=== PATIENT | female | born 1955 | race Caucasian/White ===

== ENCOUNTER 2016-10-28 11:40 | Emergency (ER) | payer OTHER ==
[2016-10-28 14:38] LABS: HEMOGLOBIN 14.8 gm/dl (12.3-15.3); RED BLOOD COUNT 5.42 M/UL (4.00-5.10); WHITE BLOOD COUNT 13.1 K/UL (4.5-11.0)
[2016-10-28 14:51] LABS: BUN/CREATININE RATIO 14 (0-10)
== END 2016-10-28 18:00 | disposition home or self-care (01) ==
LOC: ER1 11:40
PROVIDERS: Student in an Organized Health Care Education/Training Program
DX: N39.0 Urinary tract infection, site not specified (principal); R51 Headache; R11.10 Vomiting, unspecified; E11.9 Type 2 diabetes mellitus without complications; I10 Essential (primary) hypertension; Z90.49 Acquired absence of other specified parts of digestive tract; G89.29 Other chronic pain; Z88.0 Allergy status to penicillin; Z88.2 Allergy status to sulfonamides; Z91.041 Radiographic dye allergy status; Z79.82 Long term (current) use of aspirin; Z79.899 Other long term (current) drug therapy; R19.7 Diarrhea, unspecified
CPT/HCPCS: 36415; 70450; 71010; 80053; 81001; 85025; 87086; 96361; 96374; 96375; 99284; J0696; J2405; J7040; J7050

== ENCOUNTER → 2016-11-30 | Outpatient (CLI) | payer OTHER | LOC: RAD 14:18 | DX: M54.5 Low back pain (principal); M19.049 Primary osteoarthritis, unspecified hand; M17.0 Bilateral primary osteoarthritis of knee; M10.9 Gout, unspecified; M79.7 Fibromyalgia; M51.36 Other intervertebral disc degeneration, lumbar region; M43.16 Spondylolisthesis, lumbar region; M43.17 Spondylolisthesis, lumbosacral region; Z79.899 Other long term (current) drug therapy | CPT/HCPCS: 72202 ==

== ENCOUNTER 2020-07-04 13:10 | Emergency (ER) | payer OTHER ==
[~2020-07-04 13:10] MED LIST: CATAPRES0.2 MG PO; COLACE 100MG C100 MG PO; FERROUS SULFAT325 M2 PO; FLAGYL500 MG PO; FLONASE 0.05% N16 GM; HYDROCHLOROTHIA25 MG PO; KEFLEX500 MG PO; LEXAPRO TAB 1010 MG PO; METFORMIN HCL750 MG PO; MONTELUKAST SOD10 MG PO; PROTONIX 40 MG40 M1 PO; TOLTERODINE TART4 MG PO; TOPROL XL100 MG PO; XYZAL5 MG PO; ZETIA 10 MG TAB10 MG PO; ZYLOPRIM 300 M300 MG PO
[2020-07-04 15:26] LABS: HEMOGLOBIN 14.5 gm/dl (12.3-15.3); RED BLOOD COUNT 5.07 M/UL (4.00-5.10); WHITE BLOOD COUNT 6.5 K/UL (4.5-11.0)
[2020-07-04 16:28] LABS: BUN/CREATININE RATIO 13 (0-10)
[2020-07-04] MEDS ORDERED: DECADRON6 MG PO (18:31)
[2020-07-04] MEDS ORDERED: ZITHROMAX250 MG PO (18:31)
== END 2020-07-04 19:50 | disposition home or self-care (01) ==
LOC: ER1 13:10
PROVIDERS: Family Medicine
DX: U07.1 COVID-19 (principal); J12.89 Other viral pneumonia
CPT/HCPCS: 71045; 80053; 82550; 82553; 83615; 83874; 84484; 85025; 86140; 99284; M0239

== ENCOUNTER 2020-10-05 12:03 | Emergency (ER) | payer OTHER ==
[~2020-10-05 12:03] MED LIST changes: +DECADRON6 MG PO; +ZITHROMAX250 MG PO
[2020-10-05] MEDS ORDERED: ZOFRAN ODT 4 MG4 MG SL (15:19)
== END 2020-10-05 15:25 | disposition home or self-care (01) ==
LOC: ER1 12:03
DX: R51.9 Headache, unspecified (principal); R11.2 Nausea with vomiting, unspecified
CPT/HCPCS: 70450; 96374; 96375; 99284; J1885; J2405

== ENCOUNTER → 2020-11-24 | Outpatient (CLI) | payer OTHER ==
[~2020-11-24] MED LIST changes: +ZOFRAN ODT 4 MG4 MG SL
== END ==
LOC: EXRD 15:08
DX: M25.562 Pain in left knee (principal); M17.0 Bilateral primary osteoarthritis of knee
CPT/HCPCS: 73564

== ENCOUNTER → 2021-11-08 | Outpatient (CLI) | payer OTHER | LOC: KOH-I 11-06 15:00 | DX: N26.1 Atrophy of kidney (terminal) (principal); M79.675 Pain in left toe(s); M79.672 Pain in left foot; N28.1 Cyst of kidney, acquired; M19.072 Primary osteoarthritis, left ankle and foot | CPT/HCPCS: 73630; 76775 ==

== ENCOUNTER → 2022-01-23 | Outpatient (CLI) | payer OTHER | LOC: ECHO 10:00 | DX: R01.1 Cardiac murmur, unspecified (principal); I08.2 Rheumatic disorders of both aortic and tricuspid valves | CPT/HCPCS: ECHO; 93306 ==